=== PATIENT | male | born 1980 | race Caucasian/White ===

== ENCOUNTER → 2017-05-08 | Outpatient (CLI) | payer OTHER ==
--- NOTE | 2017-05-09 14:33 | REP ---
Clinical: Status post dislocation. Sprain. Technique: Internal rotation, external rotation, and Y view right shoulder . Findings: No acute fracture or dislocation. The acromioclavicular and glenohumeral joints are intact. No periarticular calcifications or degenerative changes are appreciated. Sub acromial space is normal. Surrounding soft tissues are unremarkable. Impression: Normal right shoulder radiographs. Signed by Tahir Salas MD 05/09/2017 12:10 A
== END ==
LOC: M WUC 13:58
PROVIDERS: ATTEND Physician Assistant
DX: S43.401A Unspecified sprain of right shoulder joint, initial encounter (principal); X58.XXXA Exposure to other specified factors, initial encounter; Y92.89 Other specified places as the place of occurrence of the external cause; Y93.89 Activity, other specified; Y99.8 Other external cause status

== ENCOUNTER → 2018-12-11 | Outpatient (CLI) | payer OTHER ==
--- NOTE | 2018-12-12 15:24 | REP ---
Clinical: Trauma. Technique: AP, lateral, bilateral oblique views of the right third digit. Findings: There is an intra-articular fracture involving the extensor base of the distal phalanx with overlying soft tissue swelling. Impression: Acute fracture at the intra-articular base of the distal phalanx. Electronically Signed by Tahir Salas MD 12/12/2018 02:41 A
== END ==
LOC: M WUC 11:08
PROVIDERS: ATTEND Physician Assistant
DX: S62.662A Nondisplaced fracture of distal phalanx of right middle finger, initial encounter for closed fracture (principal); X58.XXXA Exposure to other specified factors, initial encounter; Y92.89 Other specified places as the place of occurrence of the external cause

== ENCOUNTER 2019-12-28 04:17 | Emergency (ER) | payer OTHER | END 2019-12-28 06:55 | disposition home or self-care (01) | LOC: M ED 04:17 | DX: S62.662A Nondisplaced fracture of distal phalanx of right middle finger, initial encounter for closed fracture (principal); W22.8XXA Striking against or struck by other objects, initial encounter; Y99.0 Civilian activity done for income or pay; M15.4 Erosive (osteo)arthritis ==

== ENCOUNTER → 2023-01-17 | Outpatient (CLI) | payer OTHER | LOC: M PLAIMG 08:26 | PROVIDERS: ATTEND Nurse Practitioner Family | DX: M79.671 Pain in right foot (principal); M19.071 Primary osteoarthritis, right ankle and foot ==

== ENCOUNTER 2024-05-07 10:54 | Day surgery (SDC) | payer OTHER ==
[~2024-05-07] VITALS: Ht 185.4 cm; Wt 99.8 kg
[2024-05-07] MEDS ORDERED: propofoL 200 MG/20 ML VIAL As Ordered ONE (13:13)
[2024-05-07 13:53] VITALS: TEMP 97.9
[2024-05-07 14:10] VITALS: BP 131/80; O2SAT 97
== END 2024-05-07 14:13 | disposition home or self-care (01) ==
LOC: M OPP 10:54
PROVIDERS: ATTEND Surgery
DX: Z12.11 Encounter for screening for malignant neoplasm of colon (principal); K64.0 First degree hemorrhoids; K21.9 Gastro-esophageal reflux disease without esophagitis